=== PATIENT | female | born 1970 | race Caucasian/White ===

== ENCOUNTER 2023-05-27 01:37 | Emergency (ER) | payer BC ==
[2023-05-27 01:46] VITALS: BMI 31.8
[2023-05-27 04:24] LABS: POTASSIUM 4.7 mmol/L (3.5-5.1)
[2023-05-27 04:26] LABS: CALCIUM 9.5 mg/dL (8.5-10.1)
[2023-05-27 04:27] LABS: ALBUMIN 3.9 g/dl (3.4-5.0); BLOOD UREA NITROGEN 12.9 mg/dL (7-18)
[2023-05-27 04:30] LABS: CREATININE 0.8 mg/dL (0.55-1.3)
[2023-05-27 04:32] LABS: BILIRUBIN,TOTAL 0.3 mg/dL (0.2-1); TOT PROT 7.6 g/dl (6.4-8.2)
[2023-05-27 06:29] VITALS: BP 135/76; PULSE 78; RESP 16; TEMP 98
== END 2023-05-27 06:29 | disposition home or self-care (01) ==
LOC: JER 01:37
DX: R00.2 Palpitations (principal); R07.89 Other chest pain; R42 Dizziness and giddiness
CPT/HCPCS: 36415; 71046-TC-FY; 80053; 84436; 84443; 84484; 84703; 93005; 93010; 99285-25